=== PATIENT | female | born 1980 | race Caucasian/White ===

== ENCOUNTER 2017-02-23 11:04 | Emergency (ER) | payer SELFPAY ==
[2017-02-23 12:07] LABS: BASO % 0.7 % (0.0-2.0); EOS # 0.1 K/uL (0.0-0.7); EOS % 1.5 % (0.0-4.0); HEMATOCRIT 36.9 % (34.0-47.0); LYMPH # 1.2 K/uL (1.0-4.3); LYMPH % 25.2 % (20.0-40.0); MEAN CORPUSCULAR HEMOGLOBIN 23.8 pg (27.0-31.0); MEAN CORPUSCULAR HGB CONC 31.1 g/dL (33.0-37.0); MEAN PLATELET VOLUME 10.6 fL (7.2-11.7); MONO # 0.5 K/uL (0.0-0.8)
[2017-02-23 12:09] LABS: MEAN CELL VOLUME 76.6 fL (81.0-99.0)
[2017-02-23 12:28] LABS: RBC URINE < 1 /hpf (0-3); URINE BACTERIA RARE (<OCC); URINE BILIRUBIN NEGATIVE (NEGATIVE); URINE BLOOD NEGATIVE (NEGATIVE); URINE COLOR Colorless (YELLOW); URINE GLUCOSE (UA) NORMAL (Normal); URINE KETONE NEGATIVE (NEGATIVE); URINE LEUKOCYTE ESTERASE NEG Leu/uL (Negative); URINE PROTEIN NEGATIVE (NEGATIVE); URINE UROBILINOGEN NORMAL mg/dL (0.2-1.0); WBC URINE < 1 /hpf (0-5)
[2017-02-23 12:28] LABS: CHLORIDE 101 mmol/L (98-107); POTASSIUM 4.1 mmol/L (3.6-5.2); SODIUM 137 mmol/L (132-148)
[2017-02-23 12:30] LABS: GFR AFRICAN-AMERICAN > 60
[2017-02-23 12:31] LABS: ALB/GLOB RATIO 1.7 (1.0-2.1); ALKALINE PHOSPHATASE 57 U/L (38-126); ALT/SGPT 29 U/L (9-52); AST/SGOT 22 U/L (14-36); BILIRUBIN,TOTAL 0.4 mg/dL (0.2-1.3); BLOOD UREA NITROGEN 13 mg/dL (7-17); CARBON DIOXIDE 26 mmol/L (22-30); GLUCOSE,RANDOM 82 mg/dL (65-105); TOTAL PROTEIN 7.6 g/dL (6.3-8.3)
[2017-02-23 12:32] LABS: CALCIUM 8.5 mg/dl (8.6-10.4)
--- NOTE | 2017-02-23 13:15 | C.PDOC ---
History Of Present Illness 36 y/o female presents to ED with complaint of dyspareunia and vaginal bleeding after intercourse x 3 episodes. Notes bleeding resolved the same day. Patient reports history of ectopic on 11/15/16, which required surgery. Denies vaginal discharge, fever, chills, nausea, vomiting, diarrhea, urinary symptoms. Time Seen by Provider: 02/23/17 11:18 Chief Complaint (Nursing): Abdominal Pain History Per: Patient History/Exam Limitations: no limitations Onset/Duration Of Symptoms: Intermittent Episodes Current Symptoms Are (Timing): Still Present Location Of Pain/Discomfort: Suprapubic Radiation Of Pain To:: None Quality Of Discomfort: "Pain" Associated Symptoms: denies: Fever, Chills, Nausea, Vomiting, Diarrhea, Urinary Symptoms Recent travel outside of the [place]: No Abnormal Vaginal Bleeding: Yes Past Medical History Reviewed: Historical Data, Nursing Documentation, Vital Signs Vital Signs: Last Vital Signs Temp 98.4 F 02/23/17 13:55 Pulse 80 02/23/17 14:23 Resp 18 02/23/17 14:23 BP 104/69 02/23/17 14:23 Pulse Ox 100 02/23/17 14:23 - Medical History PMH: No Chronic Diseases Denies: Chronic Kidney Disease - [facility] Procedures EXCISION OF RIGHT FALLOPIAN TUBE, PERC ENDO APPROACH (11/15/16) RESECTION OF ECTOPIC POC, PERC ENDO APPROACH (11/15/16) Family History: States: Unknown Family Hx - Social History Hx Tobacco Use: No Hx Alcohol Use: Yes Hx Substance Use: No - Immunization History Hx Tetanus Toxoid Vaccination: No Hx Influenza Vaccination: No Hx Pneumococcal Vaccination: No Review Of Systems Except As Marked, All Systems Reviewed And Found Negative. Constitutional: Negative for: Fever, Chills Cardiovascular: Negative for: Chest Pain Respiratory: Negative for: Cough, Shortness of Breath Gastrointestinal: Positive for: Abdominal Pain. Negative for: Nausea, Vomiting , Diarrhea Genitourinary: Positive for: Vaginal Bleeding, Pelvic Pain. Negative for: Dysuria, Vaginal Discharge Skin: Negative for: Rash Physical Exam - Physical Exam Appears: Non-toxic, No Acute Distress Skin: Warm, Dry Head: Atraumatic, Normacephalic Eye(s): bilateral: Normal Inspection, EOMI Nose: Normal Oral Mucosa: Moist Chest: Symmetrical Cardiovascular: Rhythm Regular Respiratory: Normal Breath Sounds, No Rales, No Rhonchi, No Wheezing Gastrointestinal/Abdominal: Soft, Tenderness (suprapubic), No Distention, No Guarding, No Rebound, Other (healed incision site) Back: Normal Inspection, No CVA Tenderness Pelvic: Normal External Exam, No Vaginal Bleeding, No Vaginal Discharge, No Cervical Motion Tenderness, No Cervix Open, No Adnexal Tenderness Extremity: Normal ROM, Capillary Refill (< 2 sec.) Extremity: Bilateral: Normal Color And Temperature Neurological/Psych: Oriented x3, Normal Speech, Normal Cognition ED Course And Treatment - Laboratory Results Result Diagrams: 02/23/17 12:00 02/23/17 12:04 O2 Sat by Pulse Oximetry: 98 (RA) Pulse Ox Interpretation: Normal - CT Scan/US PELVIS/TV ULTRASOUND Other Rad Studies (CT/US): Read By Radiologist, Radiology Report Reviewed CT/US Interpretation: Accession No. : [id number]. Patient Name / ID : MARY ALEXIS / [id number]. Exam Date : 02/23/2017 12:56:30 ( Approved ). Study Comment : Sex / Age : F / 36Y. Creator : Binu Terrell MD. Dictator : Binu Terrell MD. Hand Molder : Buggy Runner : Binu Terrell MD. Approver2 : Report Date : 02/23/2017 13:30:15. My Comment : . Pelvic ultrasound. History: Pelvic pain. History of ectopic . Comparison: None available. Technique: Real-time sonography was performed through the pelvis utilizing transabdominal and transvaginal techniques. Findings: Negative urine test. Uterus: 7.4 x 3.6 x 4.2 centimeters. Heterogeneous echotexture. Anteverted. Small superior midline fibroid lesion measuring 1.4 x 1.2 x 1.3 centimeters. Endometrium measures 9.7 millimeters, within normal limits. Right ovary: Prominent. 4.0 x 3.7 x 4.0 centimeters. Heterogeneous echotexture. Normal flow. Complex cystic lesion in the right ovary measuring 3.2 x 3.1 x 3.2 centimeters. Left ovary: 3.0 x 1.9 x 3.1 centimeters. Normal flow. Small amount of free fluid adjacent to the right ovary. Impression: Negative urine test. Complex cystic lesion in the right ovary measuring 3.2 x 3.0 x 3.1 centimeters. Interval followup ultrasound and or correlation with pelvic MRI may be helpful if clinically indicated. Small amount of free fluid adjacent to the right ovary. 1.4 centimeter fibroid lesion in the uterus. Progress Note: Labs, ultrasound ordered and reviewed. No signs of infectionous process. Discussed case with Dr. Sommer who instructed no further treatment and will have pt follow up outpatient. Case discussed with Dr Paredes, agreed upon plan and treatment. Discussed signs of concern, and instructed strict follow up. Disposition - Disposition Referrals: Js Sommer [Staff Provider] - Disposition: HOME/ ROUTINE Disposition Time: 13:41 Condition: STABLE Additional Instructions: Follow up with your primary medical doctor or clinic in 2-5 days for further evaluation. Return to the emergency department at any time if symptoms persist or worsen. Instructions: Ovarian Cyst (ED) - Clinical Impression Clinical Impression: Hx of unilateral salpingectomy, Pelvic pain - PA / [employer] ADMINISTRATOR / Resident Statement MD/DO has reviewed & agrees with the documentation as recorded. - Scribe Statement The provider has reviewed the documentation as recorded by the Araibtaina Zayas All medical record entries made by the Araibtaina were at my direction and personally dictated by me. I have reviewed the chart and agree that the record accurately reflects my personal performance of the history, physical exam, medical decision making, and the department course for this patient. I have also personally directed, reviewed, and agree with the discharge instructions and disposition.
--- NOTE | 2017-02-23 13:32 | US ---
Pelvic ultrasound History: Pelvic pain. History of ectopic . Comparison: None available. Technique: Real-time sonography was performed through the pelvis utilizing transabdominal and transvaginal techniques. Findings: Negative urine test. Uterus: 7.4 x 3.6 x 4.2 centimeters. Heterogeneous echotexture. Anteverted. Small superior midline fibroid lesion measuring 1.4 x 1.2 x 1.3 centimeters. Endometrium measures 9.7 millimeters, within normal limits. Right ovary: Prominent. 4.0 x 3.7 x 4.0 centimeters. Heterogeneous echotexture. Normal flow. Complex cystic lesion in the right ovary measuring 3.2 x 3.1 x 3.2 centimeters. Left ovary: 3.0 x 1.9 x 3.1 centimeters. Normal flow. Small amount of free fluid adjacent to the right ovary. Impression: Negative urine test. Complex cystic lesion in the right ovary measuring 3.2 x 3.0 x 3.1 centimeters. Interval followup ultrasound and or correlation with pelvic MRI may be helpful if clinically indicated. Small amount of free fluid adjacent to the right ovary. 1.4 centimeter fibroid lesion in the uterus.
[2017-02-23 14:03] VITALS: TEMP 98.4
[2017-02-23 14:25] VITALS: BP 104/69; PULSE 80; RESP 18
[2017-02-26 20:17] VITALS: O2SAT 98
== END 2017-02-23 14:25 | disposition home or self-care (01) ==
LOC: C.ER 11:04
DX: R10.2 Pelvic and perineal pain (principal); Z98.890 Other specified postprocedural states

== ENCOUNTER 2017-08-11 12:58 | Emergency (ER) | payer SELFPAY ==
[2017-08-11 13:33] VITALS: RESP 16
[2017-08-11 15:20] LABS: BASO % 0.4 % (0.0-2.0); EOS % 0.3 % (0.0-4.0); LYMPH # 1.2 K/uL (1.0-4.3); LYMPH % 16.4 % (20.0-40.0); MEAN CELL VOLUME 78.1 fL (81.0-99.0); MEAN CORPUSCULAR HEMOGLOBIN 25.1 pg (27.0-31.0); MEAN CORPUSCULAR HGB CONC 32.1 g/dL (33.0-37.0); MEAN PLATELET VOLUME 10.3 fL (7.2-11.7); MONO # 0.6 K/uL (0.0-0.8); MONO % 8.8 % (0.0-10.0); RED CELL DISTRIBUTION WIDTH 14.7 % (11.5-14.5)
[2017-08-11 15:31] LABS: RBC URINE < 1 /hpf (0-3); URINE BACTERIA MOD (<OCC); URINE BILIRUBIN NEGATIVE (NEGATIVE); URINE BLOOD NEGATIVE (NEGATIVE); URINE COLOR Straw (YELLOW); URINE GLUCOSE (UA) NORMAL (Normal); URINE KETONE NEGATIVE (NEGATIVE); URINE LEUKOCYTE ESTERASE NEG Leu/uL (Negative); URINE PROTEIN NEGATIVE (NEGATIVE); URINE UROBILINOGEN NORMAL mg/dL (0.2-1.0); WBC URINE < 1 /hpf (0-5)
[2017-08-11 15:32] LABS: ALB/GLOB RATIO 1.4 (1.0-2.1); ALKALINE PHOSPHATASE 59 U/L (38-126); ALT/SGPT 38 U/L (9-52); AST/SGOT 26 U/L (14-36); BILIRUBIN,TOTAL 0.8 mg/dL (0.2-1.3); BLOOD UREA NITROGEN 7 mg/dL (7-17); CALCIUM 8.6 mg/dl (8.6-10.4); CARBON DIOXIDE 24 mmol/L (22-30); CHLORIDE 101 mmol/L (98-107); GFR AFRICAN-AMERICAN > 60; GLUCOSE,RANDOM 112 mg/dL (65-105); POTASSIUM 3.1 mmol/L (3.6-5.2); SODIUM 137 mmol/L (132-148); TOTAL PROTEIN 7.6 g/dL (6.3-8.3)
--- NOTE | 2017-08-11 16:27 | C.PDOC ---
History Of Present Illness 37 y/o female with history of right ruptured ectopic several months ago with right salpingectomy presents to ED with complaints of headache and right sided low abdominal pain since last night. Patient states she has a + home test and reports no care. Patient also complaints of "urine feels hot" and denies nausea, vomiting, vaginal bleeding, back pain or any other complaints at this time. LMP 06/26/17 Time Seen by Provider: 08/11/17 15:04 Chief Complaint (Nursing): Abdominal Pain History Per: Patient History/Exam Limitations: no limitations Onset/Duration Of Symptoms: Days Current Symptoms Are (Timing): Still Present Location Of Pain/Discomfort: LLQ Past Medical History Reviewed: Historical Data, Nursing Documentation, Vital Signs Vital Signs: Last Vital Signs Temp 98.1 F 08/11/17 13:31 Pulse 89 08/11/17 13:31 Resp 16 08/11/17 13:31 BP 113/74 08/11/17 13:31 Pulse Ox 100 08/11/17 18:30 - Medical History PMH: No Chronic Diseases Surgical History: No Surg Hx - [facility] Procedures EXCISION OF RIGHT FALLOPIAN TUBE, PERC ENDO APPROACH (11/15/16) RESECTION OF ECTOPIC POC, PERC ENDO APPROACH (11/15/16) Family History: States: No Known Family Hx - Social History Hx Tobacco Use: No Hx Alcohol Use: No Hx Substance Use: No - Immunization History Hx Tetanus Toxoid Vaccination: No Hx Influenza Vaccination: No Hx Pneumococcal Vaccination: No Review Of Systems Constitutional: Negative for: Fever, Chills Gastrointestinal: Positive for: Abdominal Pain. Negative for: Nausea, Vomiting , Diarrhea Genitourinary: Negative for: Dysuria, Hematuria Musculoskeletal: Negative for: Back Pain Skin: Negative for: Rash Neurological: Positive for: Headache. Negative for: Weakness, Numbness Physical Exam - Physical Exam Additional Physical Exam Comments: Constitutional: No acute distress. WDWN. Head: Normocephalic. Atraumatic. Eyes: PERRL. EOMI. ENT: Moist mucous membranes. Neck: Supple. Cardiovascular: Regular rate and rhythm. Chest: No tenderness. Respiratory: Clear to auscultation bilaterally. GI: Soft. Nontender. Nondistended. Normoactive bowel sounds. No rebound. No guarding. Back: No CVA and no mid-line tenderness. Musculoskeletal: No tenderness or swelling of extremities. Skin: No rash. Neurologic: Alert, no focal deficit. ED Course And Treatment - Laboratory Results Result Diagrams: 08/11/17 15:11 08/11/17 15:11 O2 Sat by Pulse Oximetry: 100 (RA) Pulse Ox Interpretation: Normal - CT Scan/US Preg 1st Trimester Other Rad Studies (CT/US): Read By Radiologist, Radiology Report Reviewed CT/US Interpretation: Indication: left pelvic pain, , hx right ruptured ectopic. Comparison: None available. Technique: Real-time transabdominal pelvic ultrasound was performed. In addition a transvaginal pelvic ultrasound was necessary to better depict pelvic anatomy. Findings: The uterus measures approximately 8.3 x 4.7 x 5.6 cm. Retroverted. Probable posterior uterine fibroid measuring approximately 1.8 x 2.1 x 2.0 cm. Cervix length measures approximately 2.6 cm. There is a single intrauterine fetus present. 4 mm yolk sac. The gestational sac measures 1.4 cm and is compatible with a gestational age of 5 weeks 4 days. The crown-rump length measures 0.3 cm and is compatible with a gestational age of 6 weeks 0 days. heart motion was not detected during this examination. The right ovary measures 3.2 x 2.6 x 2.8 cm and contains 2.0 x 1.5 x 2.0 cm probable corpus luteal cyst. The left ovary measures 2.9 x 2.6 x 2.3 cm. Blood flow was demonstrated to both ovaries. Small pelvic free fluid. Impression: Single intrauterine with estimated gestational age 5 weeks 4 days by gestational sac calculation and 6 weeks 0 days by crown-rump length calculation. heart motion was not detected during this examination, which may be the result of early stage of . Recommend clinical correlation including quantitative beta HCG and follow-up as indicated. Probable 2 cm right ovarian corpus luteal cyst. Small pelvic free fluid. 2.1 cm posterior uterine fibroid. Medical Decision Making Medical Decision Making: Plan: Transvaginal US, UA, IV fluids 7 pm pt in early stages of , gestational sac seen, no hb, beta [id number]. will d/c patient with precautions, af/u 2 days for repeat bhcg and sono, eat foods with potassium. Disposition Counseled Patient/Family Regarding: Diagnosis, Need For Followup - Disposition Referrals: [facility] [Outside] Disposition: HOME/ ROUTINE Disposition Time: 19:11 Condition: STABLE Additional Instructions: Pelvic rest, nothing in vagina. FOllow up in [facility] clinic or in ED in 2 days for repeat bhcg blood work and repeat sonogram. Return to ER for any worsening pain, vaginal bleeding or other concerns. Eat foods high in potassium. Forms: [facility] (Armenian), General Discharge Instructions - Clinical Impression Clinical Impression: Threatened , Hypokalemia - PA / ALBERENE STONE SETTER / Resident Statement MD/DO has reviewed & agrees with the documentation as recorded. - Scribe Statement The provider has reviewed the documentation as recorded by the Scribtaina Whaley All medical record entries made by the Nesha were at my direction and personally dictated by me. I have reviewed the chart and agree that the record accurately reflects my personal performance of the history, physical exam, medical decision making, and the department course for this patient. I have also personally directed, reviewed, and agree with the discharge instructions and disposition.
--- NOTE | 2017-08-11 18:00 | US ---
Indication: left pelvic pain, , hx right ruptured ectopic Comparison: None available Technique: Real-time transabdominal pelvic ultrasound was performed. In addition a transvaginal pelvic ultrasound was necessary to better depict pelvic anatomy. Findings: The uterus measures approximately 8.3 x 4.7 x 5.6 cm. Retroverted. Probable posterior uterine fibroid measuring approximately 1.8 x 2.1 x 2.0 cm. Cervix length measures approximately 2.6 cm. There is a single intrauterine fetus present. 4 mm yolk sac. The gestational sac measures 1.4 cm and is compatible with a gestational age of 5 weeks 4 days. The crown-rump length measures 0.3 cm and is compatible with a gestational age of 6 weeks 0 days. heart motion was not detected during this examination. The right ovary measures 3.2 x 2.6 x 2.8 cm and contains 2.0 x 1.5 x 2.0 cm probable corpus luteal cyst. The left ovary measures 2.9 x 2.6 x 2.3 cm. Blood flow was demonstrated to both ovaries. Small pelvic free fluid. Impression: Single intrauterine with estimated gestational age 5 weeks 4 days by gestational sac calculation and 6 weeks 0 days by crown-rump length calculation. heart motion was not detected during this examination, which may be the result of early stage of . Recommend clinical correlation including quantitative beta HCG and follow-up as indicated. Probable 2 cm right ovarian corpus luteal cyst. Small pelvic free fluid. 2.1 cm posterior uterine fibroid.
[2017-08-11] MEDS ORDERED: Potassium Chloride 20 mEq/15 ml LIQ UD PO STA (18:33)
[2017-08-11] MEDS ORDERED: Potassium Chloride 20 mEq ER Tab PO STA ×2 (18:48→18:49)
[2017-08-11] MEDS ORDERED: Potassium Chloride 20 mEq ER Tab PO ONE (18:48)
[2017-08-11 19:28] VITALS: BP 121/71; PULSE 81; TEMP 97.3; O2SAT 97
[2017-08-12] MEDS ORDERED: Potassium Chloride 20 mEq ER Tab PO SCH (10:00)
== END 2017-08-11 19:27 | disposition home or self-care (01) ==
LOC: C.ER 12:58
DX: O20.0 Threatened abortion (principal); O26.891 Other specified pregnancy related conditions, first trimester; E87.6 Hypokalemia; Z3A.01 Less than 8 weeks gestation of pregnancy

== ENCOUNTER 2017-08-18 20:10 | Emergency (ER) | payer SELFPAY ==
[2017-08-18 20:10] VITALS: BMI 23.3
[2017-08-18] MEDS ORDERED: Sodium Chloride 0.9% 1,000 ML IV ONE ×2 (21:10→23:17)
[2017-08-18] MEDS ORDERED: Sodium Chloride 0.9% 1,000 ML ONE ×2 (21:20→23:29)
[2017-08-18 21:22] LABS: BASO % 0.3 % (0.0-2.0); EOS % 0.2 % (0.0-4.0); HEMATOCRIT 42.1 % (34.0-47.0); LYMPH # 1.1 K/uL (1.0-4.3); MEAN CORPUSCULAR HEMOGLOBIN 25.2 pg (27.0-31.0); MEAN CORPUSCULAR HGB CONC 32.3 g/dL (33.0-37.0); MEAN PLATELET VOLUME 10.7 fL (7.2-11.7); MONO # 0.5 K/uL (0.0-0.8); MONO % 5.9 % (0.0-10.0); RED CELL DISTRIBUTION WIDTH 14.8 % (11.5-14.5); WHITE BLOOD COUNT 8.8 K/uL (4.8-10.8)
[2017-08-18 21:34] LABS: RBC URINE 7 /hpf (0-3); URINE BACTERIA MANY (<OCC); URINE BILIRUBIN NEGATIVE (NEGATIVE); URINE BLOOD NEGATIVE (NEGATIVE); URINE COLOR Yellow (YELLOW); URINE GLUCOSE (UA) NORMAL (Normal); URINE KETONE 2+ mg/dL (NEGATIVE); URINE LEUKOCYTE ESTERASE NEG Leu/uL (Negative); URINE PROTEIN 1+ mg/dL (NEGATIVE); URINE UROBILINOGEN NORMAL mg/dL (0.2-1.0); WBC URINE 4 /hpf (0-5)
[2017-08-18 21:38] LABS: ALB/GLOB RATIO 1.4 (1.0-2.1); ALKALINE PHOSPHATASE 73 U/L (38-126); ALT/SGPT 35 U/L (9-52); AST/SGOT 25 U/L (14-36); BILIRUBIN,TOTAL 1.3 mg/dL (0.2-1.3); BLOOD UREA NITROGEN 11 mg/dL (7-17); CALCIUM 9.5 mg/dl (8.6-10.4); CARBON DIOXIDE 20 mmol/L (22-30); CHLORIDE 102 mmol/L (98-107); GFR AFRICAN-AMERICAN > 60; GLUCOSE,RANDOM 103 mg/dL (65-105); POTASSIUM 3.3 mmol/L (3.6-5.2); SODIUM 139 mmol/L (132-148); TOTAL PROTEIN 8.4 g/dL (6.3-8.3)
--- NOTE | 2017-08-18 21:48 | C.PDOC ---
History Of Present Illness Dalia Bansal is a 37 year old female, with no past medical history, who presents to the emergency department complaining of abdominal pain associated with x7 episodes of vomiting onset for x2 days. Patient is 6 weeks , A1, she had an ectopic . She states she can't eat or drink without vomiting the contents. She was seen in the ED last week for fever, and had an US done. She denies any vaginal bleeding, diarrhea or nausea. No further medical complaints. PMD: Clinic,Med Surg Time Seen by Provider: 08/18/17 20:56 Chief Complaint (Nursing): Abdominal Pain History Per: Patient History/Exam Limitations: no limitations Onset/Duration Of Symptoms: Days (x2) Current Symptoms Are (Timing): Still Present Location Of Pain/Discomfort: Diffuse Radiation Of Pain To:: None Quality Of Discomfort: "Pain" Associated Symptoms: Vomiting (x7 episodes). denies: Nausea, Diarrhea, Other ( vaginal bleeding) : 2 Para: 0 Miscarriage: 1 Past Medical History Reviewed: Historical Data, Nursing Documentation, Vital Signs Vital Signs: Last Vital Signs Temp 98.2 F 08/19/17 04:33 Pulse 88 08/19/17 04:33 Resp 24 08/19/17 04:33 BP 95/38 L 08/19/17 04:33 Pulse Ox 100 08/19/17 04:33 - Medical History PMH: Denies: Chronic Kidney Disease - [facility] Procedures EXCISION OF RIGHT FALLOPIAN TUBE, PERC ENDO APPROACH (11/15/16) RESECTION OF ECTOPIC POC, PERC ENDO APPROACH (11/15/16) Family History: States: Unknown Family Hx - Social History Hx Tobacco Use: No Hx Alcohol Use: No Hx Substance Use: No - Immunization History Hx Tetanus Toxoid Vaccination: No Hx Influenza Vaccination: No Hx Pneumococcal Vaccination: No Review Of Systems Except As Marked, All Systems Reviewed And Found Negative. Gastrointestinal: Positive for: Vomiting (x7 episodes), Abdominal Pain. Negative for: Nausea, Diarrhea Genitourinary: Negative for: Vaginal Bleeding Physical Exam - Physical Exam Skin: Normal Color, Warm, Dry Head: Atraumatic, Normacephalic Eye(s): bilateral: Normal Inspection, PERRL, EOMI Neck: Normal, Normal ROM, Supple Cardiovascular: Rhythm Regular Respiratory: Normal Breath Sounds, No Accessory Muscle Use Gastrointestinal/Abdominal: Tenderness (diffused) Extremity: Normal ROM, No Deformity, No Swelling Neurological/Psych: Oriented x3, Normal Speech ED Course And Treatment - Laboratory Results Result Diagrams: 08/18/17 21:17 08/18/17 21:17 O2 Sat by Pulse Oximetry: 100 (RA) Pulse Ox Interpretation: Normal - CT Scan/US Transvaginal US Other Rad Studies (CT/US): Read By Radiologist, Radiology Report Reviewed CT/US Interpretation: IMPRESSION: 6 week 4 day single living intrauterine gestation, estimated date of delivery 04/09/18;. right corpus luteum Medical Decision Making Medical Decision Making: Initial Impression: abdominal pain in Initial Plan: --Beta-HCG, quantitative --Comp Metabolic Panel --Pepcid 20 mg IVP --Zofran Inj 4 mg IVP --NS IV 1,000 ml @ 1,000 mls/hr --Transvaginal [US] --reevaluation patient remained symptomatic. Phoned ob flight reservations manager and states doctor is in . Case s/o at 1 am Disposition - Disposition Referrals: [facility] [Outside] [facility] [Outside] Disposition: HOME/ ROUTINE Disposition Time: 01:00 Condition: GOOD Additional Instructions: Thank you for letting us take care of you today. The emergency medical care you received today was directed at your acute symptoms. If you were prescribed any medication, please fill it and take as directed. It may take several days for your symptoms to resolve. Return to the Emergency Department if your symptoms worsen, do not improve, or if you have any other problems. Please contact your doctor or call one of the physicians/clinics you have been referred to that are listed on the Patient Visit Information form that is included in your discharge packet. Bring any paperwork you were given at discharge with you along with any medications you are taking to your follow up visit. Our treatment cannot replace ongoing medical care by a primary care provider (PCP) outside of the emergency department. Thank you for allowing the [facility] team to be part of your care today. Follow up with your [facility] doctor or the clinic this week for outpatient care and management. Prescriptions: Metoclopramide [Reglan] 10 mg PO Q8 PRN #20 tab PRN Reason: Nausea/Vomiting Instructions: Hyperemesis Gravidarum (ED) Forms: [facility] (Togolese), General Discharge Instructions - Clinical Impression Clinical Impression: Hyperemesis gravidarum - Scribe Statement Freddy Siu Provider Attestation: All medical record entries made by the Scribe were at my direction and personally dictated by me. I have reviewed the chart and agree that the record accurately reflects my personal performance of the history, physical exam, medical decision making, and the department course for this patient. I have also personally directed, reviewed, and agree with the discharge instructions and disposition. Physician Patient Turnover Patient Signed Over To: Cheo García DO Handoff Comments: pending call back from OB for possible admission
[2017-08-18] MEDS ORDERED: Potassium Chloride 20 mEq ER Tab PO STA (23:24)
[2017-08-18] MEDS ORDERED: Potassium Chloride 20 mEq ER Tab PO ONE ×2 (23:28→23:33)
--- NOTE | 2017-08-19 00:29 | US ---
EXAM: US , Transvaginal EXAM DATE/TIME: 08/18/2017 9:16 PM CLINICAL HISTORY: 37 years old, female; Pain; complicated by abdominal or pelvic pain; Generalized abdominal pain; First trimester; Gestational age or lmp: [id number]; ; Prior surgery; Surgery type: H/o ectopic; Additional info: Abd. Pain ADDITIONAL HISTORY: 5 week 4 day single intrauterine gestation seen on sonography 08/11/17 TECHNIQUE: Real-time transvaginal obstetrical ultrasound of the maternal pelvis and a first trimester with image documentation. Transvaginal imaging was used for better evaluation of the fetus and adnexa. COMPARISON: Prior images are not available for review. FINDINGS: Gestation: There is a single gestational sac in the uterus. Gestational sac has mean diameter 20.6 mm. A yolk sac is present, internal diameter measures 3 mm. Herlong rump length measures 6.5 mm.There is a heart rate of 150 beats per minute.. Uterus: Uterus measures approximately 8 x 5 x 6 cm. There is a 1.9 x 1.5 x 2.3 cm subserosal fibroid. Ovaries: Right ovary measures approximately 3.2 x 2.4 x 2.6 cm. There is a corpus luteum in the right ovary. Left ovary measures approximately 2.9 x 1.5 x 2.7 cm. There are follicles in both ovaries. There is flow in both ovaries on Doppler imaging. Free fluid: There is no free fluid. IMPRESSION: 6 week 4 day single living intrauterine gestation, estimated date of delivery 04/09/18; right corpus luteum
[2017-08-19] MEDS ORDERED: Dextrose 5%/Lactated Ringer's 1,000 ML IV SCH ×2 (02:45→03:00)
[2017-08-19 04:33] VITALS: BP 95/38; PULSE 88; RESP 24; O2SAT 100
[2017-08-19 04:37] VITALS: TEMP 98.2
== END 2017-08-19 04:43 | disposition home or self-care (01) ==
LOC: C.ER 20:10
DX: O21.1 Hyperemesis gravidarum with metabolic disturbance (principal); Z3A.01 Less than 8 weeks gestation of pregnancy
CPT/HCPCS: 76805; 76817; 80053; 81001; 83690; 84702; 85025; 96361; 96374; 96375; 96376; 99285; J2405; J2765; J7040; J7120

== ENCOUNTER 2017-08-23 15:47 | Observation (INO) | payer OTHER ==
[2017-08-23 15:48] VITALS: BMI 23.3
[2017-08-23] MEDS ORDERED: Sodium Chloride 0.9% 1,000 ML IV ONE ×2 (16:07→17:58)
--- NOTE | 2017-08-23 16:20 | C.PDOC ---
History Of Present Illness 37 year old female presents to the emergency department complaining of persistent vomiting for several days. Patient is 7 weeks , A1, history of ectopic . She states anything she eats or drinks she will vomit. She was seen in the ED last week and states the medication prescribed to her is not helping. She denies any vaginal bleeding, diarrhea or severe abdominal pain. She states she has mild pain only after vomiting. PMD: Clinic,Med Surg Time Seen by Provider: 08/23/17 16:06 Chief Complaint (Nursing): GI Problem History Per: Patient History/Exam Limitations: no limitations Onset/Duration Of Symptoms: Days Current Symptoms Are (Timing): Still Present Severity: Mild Associated Symptoms: Vomiting Abnormal Vaginal Bleeding: No Past Medical History Reviewed: Historical Data, Nursing Documentation, Vital Signs Vital Signs: Last Vital Signs Temp 97.9 F 08/23/17 17:54 Pulse 101 H 08/23/17 17:54 Resp 20 08/23/17 17:54 BP 108/68 08/23/17 17:54 Pulse Ox 100 08/23/17 18:49 - Medical History PMH: No Chronic Diseases - [facility] Procedures EXCISION OF RIGHT FALLOPIAN TUBE, PERC ENDO APPROACH (11/15/16) RESECTION OF ECTOPIC POC, PERC ENDO APPROACH (11/15/16) Family History: States: Unknown Family Hx - Social History Hx Tobacco Use: No Hx Alcohol Use: No Hx Substance Use: No - Immunization History Hx Tetanus Toxoid Vaccination: No Hx Influenza Vaccination: No Hx Pneumococcal Vaccination: No Review Of Systems Except As Marked, All Systems Reviewed And Found Negative. Gastrointestinal: Positive for: Nausea, Vomiting Physical Exam - Physical Exam Appears: Non-toxic, No Acute Distress Skin: Warm, Dry Head: Atraumatic, Normacephalic Eye(s): bilateral: Normal Inspection, EOMI Oral Mucosa: Moist Lips: Other (dry) Neck: Normal ROM Chest: Symmetrical Cardiovascular: Rhythm Regular, No Murmur Respiratory: Normal Breath Sounds (clear), No Rhonchi, No Wheezing Gastrointestinal/Abdominal: Bowel Sounds, Soft, No Tenderness, No Distention, No Guarding Extremity: Bilateral: Atraumatic, Normal Color And Temperature, Normal ROM Pulses: Left Radial: Normal Neurological/Psych: Oriented x3, Normal Speech ED Course And Treatment - Laboratory Results Result Diagrams: 08/23/17 16:20 08/23/17 16:20 O2 Sat by Pulse Oximetry: 100 Medical Decision Making Medical Decision Making: Impression: Vomiting in patient Plan: * Labs * IV NS * Zofran Prior records reviewed : Patient seen 08/18/17 for abdominal pain and vomiting. BHCG was 93157 and US shows IUP 6 weeks 4 days. Patient also seen 08/11/17 had BHCG 32531 and US shows IUP 5 days Progress: 1730 Labs reviewed. BHCG is 772209. Re-Evaluation time: 1731 Patient states she feels "heartburn" and is willing to try to drink fluids. PO challenge ordered. Pepcid ordered. 17:45 RN informs me the patient vomited again. Will order Reglan and additional fluids 17:56 Contact OB consumer affairs director Dr Dasilva to discuss case. Wants to await urine results. Patient encouraged to give urine. 18:38 Urine results show +2 ketones and protein. Contact OB consumer affairs director 18:[address] Dasilva who accepts patient to service Disposition - Disposition Disposition: HOME/ ROUTINE Disposition Time: 18:49 Condition: STABLE - POA Present On Arrival: None - Clinical Impression Clinical Impression: Hyperemesis gravidarum, Dehydration during Decision To Admit - Pt Status Changed To: Hospital Disposition Of: Observation - . Bed Request Type: Regular Admitting Physician: Faiza Dasilva Patient Diagnosis: Hyperemesis gravidarum, Dehydration during
[2017-08-23] MEDS ORDERED: Sodium Chloride 0.9% 1,000 ML ONE (16:21)
[2017-08-23 16:22] LABS: HEMATOCRIT 40.4 % (34.0-47.0); MEAN CORPUSCULAR HEMOGLOBIN 25.5 pg (27.0-31.0); MEAN CORPUSCULAR HGB CONC 33.1 g/dL (33.0-37.0); MEAN PLATELET VOLUME 10.8 fL (7.2-11.7); RED CELL DISTRIBUTION WIDTH 14.2 % (11.5-14.5); WHITE BLOOD COUNT 8.6 K/uL (4.8-10.8)
[2017-08-23 16:35] LABS: BLOOD UREA NITROGEN 9 mg/dL (7-17); CALCIUM 9.2 mg/dl (8.6-10.4); CARBON DIOXIDE 20 mmol/L (22-30); CHLORIDE 101 mmol/L (98-107); GFR AFRICAN-AMERICAN > 60; GLUCOSE,RANDOM 77 mg/dL (65-105); POTASSIUM 3.4 mmol/L (3.6-5.2); SODIUM 136 mmol/L (132-148)
[2017-08-23 18:36] LABS: RBC URINE 17 /hpf (0-3); URINE BACTERIA MANY (<OCC); URINE BILIRUBIN NEGATIVE (NEGATIVE); URINE BLOOD NEGATIVE (NEGATIVE); URINE COLOR Yellow (YELLOW); URINE GLUCOSE (UA) NORMAL (Normal); URINE KETONE 2+ mg/dL (NEGATIVE); URINE LEUKOCYTE ESTERASE NEG Leu/uL (Negative); URINE PROTEIN 1+ mg/dL (NEGATIVE); URINE UROBILINOGEN NORMAL mg/dL (0.2-1.0); WBC URINE 45 /hpf (0-5)
[2017-08-23] MEDS ORDERED: Potassium Chloride 20 mEq ER Tab PO STA (18:54)
[2017-08-23] MEDS ORDERED: Potassium Chloride 20 mEq ER Tab PO ONE (19:08)
--- NOTE | 2017-08-23 19:52 | CP.PCM.HP ---
History of Present Illness - History of Present Illness History of Present Illness: 37 y/o @ ~ 7+ wks by 1st trimester US ~ 04/09/18 not confirmed reports hx of nausea and vomiting x 1-2 weeks, non bloody non billious. pt reports unable to keep po intake down daily. rosa m gonzalez was seen in [facility] ER Thursday and subsquently d/c home with po reglan in which pt reports no relief. While in ER pt unable to keep po intake down with Zofran or reglan. Pt modesto any appeteit, denies any current dizzyness, Cp, SOB< fever, chills, reprots nausea and immeidate vomtiign after po intake includign bread adn sometimes crackers. Pt reprots this is a desired and deneis any pain, VB, discharge, bowel or bladder complaints. Ante: no care, reports on waitlist for clinic at [place] [facility]: 1 prior Ectopic s/p laparascopy [facility] [employer]: rose , LMP 06/2017, irregular age of menarche 14 y/o PMH: Denies PSH: Laparascopy MED: PNV and folic acid when tolerate SHX: negative eoth/tobacco/drugs FHX: Mother: New dx of DM Allergy Iron Present on Admission - Present on Admission Any Indicators Present on Admission: No Review of Systems - Constitutional Constitutional: As Per HPI - EENT Nose/Mouth/Throat: As Per HPI - Cardiovascular Cardiovascular: As Per HPI - Respiratory Respiratory: As Per HPI - Gastrointestinal Gastrointestinal: As Per HPI, Heartburn, Nausea, Vomiting - Genitourinary Genitourinary: As Per HPI - Reproductive: Female Reproductive:Female: As Per HPI - Menstruation Menstruation: As Per HPI Past Patient History - Infectious Disease Hx of Infectious Diseases: None - Past Medical History & Family History Past Medical History?: No Past Family History: Reviewed and not pertinent - Past Social History Smoking Status: Never Smoked Chewing Tobacco Use: No Cigar Use: No Alcohol: None Home Situation {Lives}: With Family Domestic Violence: Negative - CARDIAC Hx Cardiac Disorders: No - PULMONARY Hx Respiratory Disorders: No - NEUROLOGICAL Hx Neurological Disorder: No - HEMATOLOGICAL/ONCOLOGICAL Hx Blood Disorders: No - GASTROINTESTINAL Hx Gastrointestinal Disorders: No - GENITOURINARY/GYNECOLOGICAL Other/Comment: 11/15/16 ECTOPIC - PSYCHIATRIC Hx Substance Use: No - SURGICAL HISTORY Hx Surgeries: Yes Hx Dilation and Curettage: Yes - ANESTHESIA Hx Anesthesia: Yes Hx Anesthesia Reactions: No Meds Allergies/Adverse Reactions: Allergies Allergy/AdvReac Type Severity Reaction Status Date / Time iron AdvReac VOMITING Verified 08/23/17 15:59 Physical Exam - Constitutional Appears: Well, No Acute Distress - Head Exam Head Exam: ATRAUMATIC, NORMAL INSPECTION - Eye Exam Eye Exam: EOMI, Normal appearance Pupil Exam: NORMAL ACCOMODATION - ENT Exam ENT Exam: Mucous Membranes Dry - Respiratory Exam Respiratory Exam: Clear to Auscultation Bilateral, NORMAL BREATHING PATTERN - Cardiovascular Exam Cardiovascular Exam: REGULAR RHYTHM, +S1, +S2 - GI/Abdominal Exam GI & Abdominal Exam: Normal Bowel Sounds, Soft Additional comments: non tendern, no guarding, no rebound tendernes, no rigidity - Exam Additional comments: declined pelvic exam - Back Exam Back exam: NORMAL INSPECTION Additional comments: no cva b/l - Neurological Exam Neurological exam: CN II-XII Intact, Oriented x3, Reflexes Normal - Psychiatric Exam Psychiatric exam: Normal Affect, Normal Mood - Skin Skin Exam: Dry, Intact, Normal Color, Warm Additional comments: negative dimas's sign Results - Vital Signs Recent Vital Signs: Last Vital Signs Temp 97.9 F 08/23/17 17:54 Pulse 69 08/23/17 19:33 Resp 16 08/23/17 19:33 BP 111/67 08/23/17 19:33 Pulse Ox 100 08/23/17 19:33 - Labs Result Diagrams: 08/23/17 16:20 08/23/17 16:20 Labs: Laboratory Results - last 24 hr 08/23/17 08/23/17 08/23/17 16:20 16:20 18:04 WBC 8.6 RBC 5.24 H Hgb 13.4 Hct 40.4 MCV 77.0 L MCH 25.5 L MCHC 33.1 RDW 14.2 Plt Count 166 MPV 10.8 Sodium 136 Potassium 3.4 L Chloride 101 Carbon Dioxide 20 L Anion Gap 18 BUN 9 Creatinine 0.5 L Est GFR ( Amer) > 60 Est GFR (Non-Af Amer) > 60 Random Glucose 77 Calcium 9.2 Beta HCG, Quant 362611.00 Urine Color Yellow Urine Clarity Clear Urine pH 5.0 Ur Specific [place] 1.027 Urine Protein 1+ H Urine Glucose (UA) Normal Urine Ketones 2+ H Urine Blood Negative Urine Nitrate Negative Urine Bilirubin Negative Urine Urobilinogen Normal Ur Leukocyte Esterase Neg Urine WBC (Auto) 45 H Urine RBC (Auto) 17 H Ur Squamous Epith Cells 9 H Urine Bacteria Many H Urine HCG, Qual Positive Assessment & Plan (1) Nausea and vomiting during prior to 22 weeks gestation Assessment and Plan: 1. Admit to vocational childcare teacher service 2. Diet: NPO, will advance in am with clears 3. IVH: Bananana back [id number], thiamien @ 125 cc/hr 4. AM Labs 5. TVUS dating 6. Daily weights 7. Possible nutrition consult if fails po challenge 8. Zofran IV --> oral dissolabel if tolerable Status: Acute
[2017-08-23] MEDS: Folic Acid 1 MG, Thiamine 100 MG, Multivitamin (MVI) 10 ML in Dextrose 5% In Water 1,00... IV SCH (20:31)
[2017-08-24 00:22] VITALS: RESP 20
[2017-08-24 07:03] LABS: BASO % 0.4 % (0.0-2.0); EOS # 0.1 K/uL (0.0-0.7); EOS % 1.1 % (0.0-4.0); HEMATOCRIT 33.6 % (34.0-47.0); LYMPH # 1.1 K/uL (1.0-4.3); LYMPH % 18.1 % (20.0-40.0); MEAN CELL VOLUME 78.3 fL (81.0-99.0); MEAN CORPUSCULAR HEMOGLOBIN 25.6 pg (27.0-31.0); MEAN CORPUSCULAR HGB CONC 32.7 g/dL (33.0-37.0); MEAN PLATELET VOLUME 11.1 fL (7.2-11.7); MONO # 0.7 K/uL (0.0-0.8); MONO % 12.1 % (0.0-10.0); RED CELL DISTRIBUTION WIDTH 14.5 % (11.5-14.5); WHITE BLOOD COUNT 5.9 K/uL (4.8-10.8)
[2017-08-24 07:06] LABS: RBC URINE 1 /hpf (0-3); URINE BACTERIA MANY (<OCC); URINE BILIRUBIN NEGATIVE (NEGATIVE); URINE BLOOD NEGATIVE (NEGATIVE); URINE COLOR Yellow (YELLOW); URINE GLUCOSE (UA) NORMAL (Normal); URINE KETONE 1+ mg/dL (NEGATIVE); URINE LEUKOCYTE ESTERASE NEG Leu/uL (Negative); URINE PROTEIN NEGATIVE (NEGATIVE); URINE UROBILINOGEN NORMAL mg/dL (0.2-1.0); WBC URINE 2 /hpf (0-5)
[2017-08-24 08:00] LABS: ALB/GLOB RATIO 1.4 (1.0-2.1); ALKALINE PHOSPHATASE 44 U/L (38-126); ALT/SGPT 27 U/L (9-52); AMYLASE 76 U/L (30-110); AST/SGOT 16 U/L (14-36); BILIRUBIN,TOTAL 1.4 mg/dL (0.2-1.3); BLOOD UREA NITROGEN 4 mg/dL (7-17); CALCIUM 7.9 mg/dl (8.6-10.4); CARBON DIOXIDE 20 mmol/L (22-30); CHLORIDE 106 mmol/L (98-107); GFR AFRICAN-AMERICAN > 60; GLUCOSE,RANDOM 68 mg/dL (65-105); MAGNESIUM 1.5 mg/dL (1.6-2.3); SODIUM 134 mmol/L (132-148)
[2017-08-24 08:07] LABS: TOTAL PROTEIN 6.9 g/dL (6.3-8.3)
[2017-08-24] MEDS ORDERED: Magnesium Sulfate 1 gm in D5W 1 GM/100 ML BAG IVPB ONE (08:26)
--- NOTE | 2017-08-24 11:23 | US ---
PROCEDURE: OB Pelvic Ultrasound HISTORY: 7 wk iup COMPARISON: None available. FINDINGS: UTERUS: Single Live intrauterine gestation. CRL measures 0.69 cm equivalent to 6 wks/ for days gestatioin Gestational sac diameter measures 2.63 cm equivalent to 7 wks/ 3 days gestation age (Ultrasound estimated): 7 weeks and 0 days Date of delivery (Ultrasound estimated) : 04/12/2018 Heart rate: 129 bpm. Anaid-gestational hemorrhage: None. Uterus measures 9.7 x 5.4 x 0.3 cm. There is a 2.7 x 1.5 x 2.5 cm intramural anterior fundal fibroid. CERVIX: Long and closed. No cervical abnormality seen. RIGHT OVARY: Measures 3.1 x 2.1 x 2.8 cm. No mass. Normal flow. LEFT OVARY: Measures 3.2 x 2.1 x 3.0 cm. No mass. Normal flow. FREE FLUID: None. OTHER FINDINGS: None. IMPRESSION: 1. Single live intrauterine gestation with mean gestational age of 7 weeks and 0 days. The estimated date of delivery by ultrasound is 04/12/2018. The ultrasound dates correspond with the clinical dates 2. 2.7 x 1.5 x 2.5 cm anterior fundal fibroid.
[2017-08-24] MEDS ORDERED: Potassium Chloride 20 mEq ER Tab PO ONE (13:00)
[2017-08-24 16:38] VITALS: O2SAT 100
[2017-08-24] MEDS: Folic Acid 1 MG, Thiamine 100 MG, Multivitamin (MVI) 10 ML in Dextrose 5% In Water 1,00... IV SCH (19:04)
--- NOTE | 2017-08-24 19:28 | CP.PCM.PN ---
<Linda Monique - Last Filed: 08/24/17 19:36> Subjective - Date & Time of Evaluation Date of Evaluation: 08/24/17 Time of Evaluation: 19:25 - Subjective Subjective: OB Progress Note: Patient seen and examined at bedside. Per nursing no acute events overnight. Patient states that she is feeling better. Still nauseous but no episodes of vomiting today. Tolerating clear liquid diet. Patient admits to having a 13lb weight loss between 08/13/17 and now. Denies headache, dizziness, cp, palpitations, sob, urinary symptoms. Objective - Vital Signs/Intake and Output Vital Signs (last 24 hours): Temp Pulse Resp BP Pulse Ox 99 F 69 20 100/63 100 08/24/17 15:25 08/24/17 15:25 08/24/17 15:25 08/24/17 15:25 08/24/17 15:25 Intake and Output: 08/24/17 08/25/17 18:59 06:59 Intake Total 350 Balance 350 - Medications Medications: Current Medications Famotidine (Pepcid) 20 mg IVP DAILY [facility] Last Admin: 08/24/17 10:10 Dose: 20 mg Folic Acid 1 mg/ Thiamine HCl 100 mg/ Multivitamins/Vitamin C 10 ml/ Dextrose 1 ,011.2 mls @ 125 mls/hr IV Q24H [facility] Last Admin: 08/24/17 19:04 Dose: 125 mls/hr Ondansetron HCl (Zofran Inj) 8 mg IVP Q8H PRN PRN Reason: Nausea/Vomiting Last Admin: 08/24/17 19:01 Dose: 8 mg Pneumococcal Polyvalent Vaccine (Pneumovax 23 Vaccine) 0.5 ml IM .ONCE ONE Stop: 08/26/17 10:01 - Labs Labs: 08/24/17 06:52 08/24/17 06:52 - Constitutional Appears: Well, No Acute Distress - Head Exam Head Exam: ATRAUMATIC, NORMAL INSPECTION - Eye Exam Eye Exam: EOMI, Normal appearance - ENT Exam ENT Exam: Mucous Membranes Moist - Respiratory Exam Respiratory Exam: NORMAL BREATHING PATTERN - Cardiovascular Exam Cardiovascular Exam: REGULAR RHYTHM, +S1, +S2 - GI/Abdominal Exam GI & Abdominal Exam: Soft. absent: Tenderness - Extremities Exam Extremities Exam: Normal Inspection - Neurological Exam Neurological Exam: Alert, Awake, Normal Gait, Oriented x3 - Psychiatric Exam Psychiatric exam: Normal Affect, Normal Mood - Skin Skin Exam: Normal Color, Warm Assessment and Plan (1) Nausea and vomiting during prior to 22 weeks gestation Assessment & Plan: -Stable, afebrile -OB US confirmed 7 week 0 day IUP -Will advance diet as tolerated -Continue IV fluid hydration with multivitamins, folic acid, thiamine, vitamin c -Continue Zofran 8mg IVP Q8H prn nausea -Hypokalemia: Potassium 3.0 today, repleted -Hypomagnesemia: Mag 1.5, repleted -F/U am CMP -Continue Pepcid 20mg IVP daily -Patient currently on [facility] waitlist for care -Will anticipate D/C home tomorrow -Plan discussed with attending Linda Monique DO PGY-1 Status: Acute <Boni,Antonieta A - Last Filed: 08/26/17 21:48> Objective - Vital Signs/Intake and Output Vital Signs (last 24 hours): Temp Pulse Resp BP Pulse Ox 98.6 F 65 20 94/57 L 100 08/25/17 07:42 08/25/17 07:42 08/25/17 07:42 08/25/17 07:42 08/25/17 07:42 - Labs Labs: 08/24/17 06:52 08/25/17 07:10 Attending/Attestation - Attestation I have personally seen and examined this patient.: Yes I have fully participated in the care of the patient.: Yes I have reviewed all pertinent clinical information, including history, physical exam and plan: Yes
[2017-08-25 07:46] VITALS: BP 94/57; PULSE 65; TEMP 98.6
[2017-08-25 07:48] LABS: ALB/GLOB RATIO 1.5 (1.0-2.1); ALKALINE PHOSPHATASE 44 U/L (38-126); ALT/SGPT 18 U/L (9-52); AST/SGOT 14 U/L (14-36); BILIRUBIN,TOTAL 1.2 mg/dL (0.2-1.3); BLOOD UREA NITROGEN 3 mg/dL (7-17); CARBON DIOXIDE 20 mmol/L (22-30); CHLORIDE 102 mmol/L (98-107); GFR AFRICAN-AMERICAN > 60; GLUCOSE,RANDOM 78 mg/dL (65-105); MAGNESIUM 1.6 mg/dL (1.6-2.3); POTASSIUM 3.2 mmol/L (3.6-5.2); SODIUM 129 mmol/L (132-148)
--- NOTE | 2017-08-25 09:19 | CP.PCM.DIS ---
Provider - Provider Date of Admission: 08/23/17 18:46 Attending physician: Faiza Dasilva MD Time Spent in preparation of Discharge (in minutes): 45 Hospital Course - Lab Results Lab Results: Most Recent Lab Values WBC 5.9 K/uL (4.8-10.8) 08/24/17 06:52 RBC 4.29 Mil/uL (3.80-5.20) 08/24/17 06:52 Hgb 11.0 g/dL (11.0-16.0) D 08/24/17 06:52 Hct 33.6 % (34.0-47.0) L 08/24/17 06:52 MCV 78.3 fL (81.0-99.0) L 08/24/17 06:52 MCH 25.6 pg (27.0-31.0) L 08/24/17 06:52 MCHC 32.7 g/dL (33.0-37.0) L 08/24/17 06:52 RDW 14.5 % (11.5-14.5) 08/24/17 06:52 Plt Count 132 K/uL (130-400) 08/24/17 06:52 MPV 11.1 fL (7.2-11.7) 08/24/17 06:52 Neut % (Auto) 68.3 % (50.0-75.0) 08/24/17 06:52 Lymph % (Auto) 18.1 % (20.0-40.0) L 08/24/17 06:52 [place] % (Auto) 12.1 % (0.0-10.0) H 08/24/17 06:52 Eos % (Auto) 1.1 % (0.0-4.0) 08/24/17 06:52 Baso % (Auto) 0.4 % (0.0-2.0) 08/24/17 06:52 Neut # 4.0 K/uL (1.8-7.0) 08/24/17 06:52 Lymph # 1.1 K/uL (1.0-4.3) 08/24/17 06:52 [place] # 0.7 K/uL (0.0-0.8) 08/24/17 06:52 Eos # 0.1 K/uL (0.0-0.7) 08/24/17 06:52 Baso # 0.0 K/uL (0.0-0.2) 08/24/17 06:52 Sodium 129 mmol/L (132-148) L 08/25/17 07:10 Potassium 3.2 mmol/L (3.6-5.2) L 08/25/17 07:10 Chloride 102 mmol/L (98-107) 08/25/17 07:10 Carbon Dioxide 20 mmol/L (22-30) L 08/25/17 07:10 Anion Gap 11 (10-20) 08/25/17 07:10 BUN 3 mg/dL (7-17) L 08/25/17 07:10 Creatinine 0.5 mg/dL (0.7-1.2) L 08/25/17 07:10 Est GFR ( Amer) > 60 08/25/17 07:10 Est GFR (Non-Af Amer) > 60 08/25/17 07:10 Random Glucose 78 mg/dL (65-105) 08/25/17 07:10 Calcium 8.0 mg/dl (8.6-10.4) L 08/25/17 07:10 Magnesium 1.6 mg/dL (1.6-2.3) 08/25/17 07:10 Total Bilirubin 1.2 mg/dL (0.2-1.3) 08/25/17 07:10 AST 14 U/L (14-36) 08/25/17 07:10 ALT 18 U/L (9-52) 08/25/17 07:10 Alkaline Phosphatase 44 U/L (38-126) 08/25/17 07:10 Total Protein 6.0 g/dL (6.3-8.3) L 08/25/17 07:10 Albumin 3.6 g/dL (3.5-5.0) 08/25/17 07:10 Globulin 2.4 gm/dL (2.2-3.9) 08/25/17 07:10 Albumin/Globulin Ratio 1.5 (1.0-2.1) 08/25/17 07:10 Amylase 76 U/L (30-110) 08/24/17 06:52 Lipase 115 U/L (23-300) 08/24/17 06:52 Free T4 1.38 ng/dL (0.78-2.19) 08/24/17 06:52 TSH 3rd Generation 0.60 mIU/L (0.46-4.68) 08/24/17 06:52 Beta HCG, Quant 939087.00 mIU/ML 08/23/17 16:20 Urine Color Yellow (YELLOW) 08/24/17 06:54 Urine Clarity Clear (Clear) 08/24/17 06:54 Urine pH 6.0 (5.0-8.0) 08/24/17 06:54 Ur Specific [place] 1.004 (1.003-1.030) 08/24/17 06:54 Urine Protein Negative mg/dL (NEGATIVE) 08/24/17 06:54 Urine Glucose (UA) Normal mg/dL (Normal) 08/24/17 06:54 Urine Ketones 1+ mg/dL (NEGATIVE) H 08/24/17 06:54 Urine Blood Negative (NEGATIVE) 08/24/17 06:54 Urine Nitrate Negative (NEGATIVE) 08/24/17 06:54 Urine Bilirubin Negative (NEGATIVE) 08/24/17 06:54 Urine Urobilinogen Normal mg/dL (0.2-1.0) 08/24/17 06:54 Ur Leukocyte Esterase Neg Marilyn/uL (Negative) 08/24/17 06:54 Urine WBC (Auto) 2 /hpf (0-5) 08/24/17 06:54 Urine RBC (Auto) 1 /hpf (0-3) 08/24/17 06:54 Ur Squamous Epith Cells 1 /hpf (0-5) 08/24/17 06:54 Urine Bacteria Many (<OCC) H 08/24/17 06:54 Urine HCG, Qual Positive (NEGATIVE) 08/23/17 18:04 - Hospital Course Hospital Course: 37 y/o @ 7 wks 0 days confirmed by ultrasound here [place] [facility] [place] presented [place] [facility] with a 10 day (since last ) hx nbnb n/v, which was unrelenting even with Reglan at home. Zofran and Reglan were given while she was in the ER to no avail. Pt also complained of a 15 pound weight loss over the past 10 days. Of note, patient's previous single resulted in a ruptured ectopic s/p laparosopy. Patient denied further complaints, including recent illness, barron/dizziness/f/ch/cp/sob/diarrhea. While at [facility], pt was advanced to FLD, which she tolerated though she did not have a strong appetite. Her Zofran dose was increased to 8q8, which finally alleviated her n/v. On admission day 2, Patient still did not feel comfortable leaving, thus she was kept overnight to observe and advance her diet to regular. She had one more bout of emesis that day. On day of discharge, patient was feeling much better, though she still had some residual nausea. No further bouts of emesis were reported and patient was deemed stable for d/c on Reglan and Pepcid. Discharge Exam - Head Exam Head Exam: ATRAUMATIC, NORMAL INSPECTION - Eye Exam Eye Exam: EOMI, Normal appearance, PERRL Pupil Exam: NORMAL ACCOMODATION, PERRL - ENT Exam ENT Exam: Mucous Membranes Moist, Normal Exam. absent: Mucous Membranes Dry - Neck Exam Neck exam: Full Rom, Normal Inspection - Respiratory Exam Respiratory Exam: Clear to PA & Lateral, NORMAL BREATHING PATTERN, UNREMARKABLE - Cardiovascular Exam Cardiovascular Exam: REGULAR RHYTHM, +S1, +S2 - GI/Abdominal Exam GI & Abdominal Exam: Normal Bowel Sounds. absent: Distended, Guarding, Rebound , Rigid - Extremities Exam Extremities exam: full ROM, normal inspection - Back Exam Back exam: FULL ROM, NORMAL INSPECTION. absent: CVA tenderness (L), CVA tenderness (R) - Neurological Exam Neurological exam: Alert, CN II-XII Intact, Normal Gait, Oriented x3, Reflexes Normal - Psychiatric Exam Psychiatric exam: Normal Affect, Normal Mood - Skin Skin Exam: Dry, Intact, Normal Color, Warm Discharge Plan - Discharge Medications Prescriptions: Famotidine [Pepcid] 20 mg IVP DAILY #60 vial Ondansetron [Zofran Inj] 8 mg IVP Q8H PRN #45 vial PRN Reason: Nausea/Vomiting - Follow Up Plan Condition: STABLE Disposition: HOME/ ROUTINE Patient education suggested?: Yes Instructions: Hyperemesis Gravidarum (DC) Additional Instructions: Please keep your appointment for tomorrow here at [facility] Please make sure to keep hydrated. You should be drinking plenty of water ( half of your weight in ounces) Your Potassium was low. Try to supplement your potassium on a weekly basis, or eating foods with potassium content on a daily basis (such as bananas). Consider seeing a casino floor person Should your symptoms persist or worsen please report back to the emergency room immediately
[2017-08-25] MEDS ORDERED: Potassium Chloride 20 mEq ER Tab PO SCH (10:00)
[2017-08-26] MEDS ORDERED: Influenza Vaccine 60 mcg/0.5 mL SYR (4YR UP) IM ONE (10:00)
[2017-08-26] MEDS ORDERED: Pneumococcal 23-Valent Vaccine IM ONE (10:00)
== END 2017-08-25 15:48 | disposition home or self-care (01) ==
LOC: C.ER 15:47 → C.9E 18:46 → C.3T 19:08
PROVIDERS: ADMIT Obstetrics & Gynecology; ATTEND Obstetrics & Gynecology
DX: O21.1 Hyperemesis gravidarum with metabolic disturbance (principal); Z3A.22 22 weeks gestation of pregnancy; E86.0 Dehydration
CPT/HCPCS: 36415; 76801; 80048; 80053; 81001; 82150; 83690; 83735; 84439; 84443; 84702; 84703; 85025; 85027; 96361; 96374; 96375; 99285; G0378; J2405; J2765; J3411; J3475; J3480; J7040; J7070

== ENCOUNTER 2017-10-16 05:48 | Day surgery (SDC) | payer OTHER ==
[2017-10-15 12:42] VITALS: BMI 19.7
[2017-10-16] MEDS ORDERED: cefOXitin IV 1 gm in Dextrose 0 GM/0 ML BAG IVPB ONE (07:33)
[2017-10-16 07:34] LABS: BLOOD UREA NITROGEN 8 mg/dL (7-17); CALCIUM 9.3 mg/dl (8.6-10.4); GFR AFRICAN-AMERICAN > 60; GFR NON-AFRICAN AMERICAN > 60
[2017-10-16] MEDS ORDERED: Propofol 10 mg/ml Inj (20 ML) ONE (07:45)
[2017-10-16] MEDS ORDERED: Midazolam 2 MG/2 ML VIAL ONE (07:45)
[2017-10-16] MEDS ORDERED: Succinylcholine Chloride 20 mg/ml Syr (5 ml) IV ONE (07:46)
[2017-10-16] MEDS ORDERED: Silver Nitrate Topical - Stick ONE (08:37)
--- NOTE | 2017-10-16 08:49 | PCM.SURG1 ---
Surgeon's Initial Post Op Note - Surgeon's Notes Surgeon: Antonieta Plata MD Inspector Subassemblies: Not applicable Type of Anesthesia: General Endo Anesthesia Administered By: Brittany Hallman MD Pre-Operative Diagnosis: Missed at 16 week, hyperemesis gravidarum, fibroid uterus Operative Findings: AV uterus 14 weeks, Uterus sounded to 14 cm. Moderate amount of products of conception. No adnexal masses appreciated Post-Operative Diagnosis: Same Operation Performed: Dilatation and curettage Specimen/Specimens Removed: Products of conception Estimated Blood Loss: EBL {In ML}: 100 (IVFs 900 mL LR) Blood Products Given: N/A Drains Used: No Drains Post-Op Condition: Good Date of Surgery/Procedure: 10/16/17 Time of Surgery/Procedure: 08:50
[2017-10-16] MEDS ORDERED: HYDROmorphone 0.5 mg/0.5 ml ISec IVP PRN (08:59)
[2017-10-16] MEDS ORDERED: HYDROmorphone 0.5 mg/0.5 ml ISec ONE (09:02)
[2017-10-16 09:29] VITALS: O2SAT 100
[2017-10-16] MEDS ORDERED: Lactated Ringer's 1,000 ML IV ONE (11:42)
[2017-10-16 13:31] VITALS: BP 96/53; PULSE 80; RESP 15; TEMP 97.4
--- NOTE | 2017-10-16 19:52 | OP ---
PROCEDURE DATE: 10/16/2017 SURGEON: Antonieta Plata MD HIP HOP DANCER: Not applicable. ANESTHESIA TYPE: General with endotracheal intubation. ANESTHESIOLOGIST: Ariana Martinez MD PREOPERATIVE DIAGNOSES: Missed at 16 weeks, hyperemesis gravidarum, and leiomyomatous uteri. POSTOPERATIVE DIAGNOSES: Missed at 16 weeks, hyperemesis gravidarum, and leiomyomatous uteri. OPERATIVE FINDINGS: Anteverted uterus 14 weeks, soft and mobile. Uterus eventually sounded to 14 cm. Normal adnexa with no adnexal masses appreciated. Moderate amount of products of conception. OPERATION PERFORMED: Cervical dilatation and sharp/suction curettage. SPECIMEN: Products of conception. ESTIMATED BLOOD LOSS: 100 mL. INTRAVENOUS FLUIDS: 900 mL total of lactated Ringer's with 30 units of Pitocin. BLOOD PRODUCTS RECEIVED: None. DRAINS: None. COMPLICATIONS: None. DESCRIPTION OF PROCEDURE: The patient was taken to the operating room after having obtained informed consent for the anticipated procedure. This included a discussion of possible risks and complications including, but not limited to uterine perforation, requiring laparoscopy and possible laparotomy with repair of any damage to internal organs, infection, and hemorrhage. The patient expressed an understanding, no questions were offered. Consent was signed, dated, witnessed and placed in the chart. The patient was then escorted to the operating room. In the operating room and on the table, she was placed in a supine position. General anesthesia was administered without incident. She was then repositioned in a candy-cane stirrups in a dorsal lithotomy position. The perineum was prepped and she was draped in the usual sterile fashion. Examination under anesthesia was performed. Findings as above. The patient was then placed in Trendelenburg position. A weighted speculum was placed in the posterior vaginal vault. A Mistry retractor was placed anteriorly and the cervix was visualized. The anterior lip of the cervix was grasped with a single tooth tenaculum. The cervix was then dilated mechanically using the Hanks and Hegar mechanical dilators. This allowed introduction of an 11 mm suction curette. Once placed in the uterine cavity, the suction device was activated and the endometrial contents were evacuated. Sharp curettage was then performed until a gritty texture was obtained. All instruments were removed. Hemostasis was assured on the anterior lip of the cervix using silver nitrate sticks. Bimanual message was performed and the uterus was noted to be contracted about 10 to 12 weeks' in size. All instruments were removed. The patient was replaced in the supine position. She was extubated and allowed to arise from anesthesia. She was transferred to the postanesthesia care unit in stable condition. Antonieta Plata MD MTDD
== END 2017-10-16 13:23 | disposition home or self-care (01) ==
LOC: C.SDS 05:48
PROVIDERS: ATTEND Obstetrics & Gynecology
DX: O02.1 Missed abortion (principal); O34.12 Maternal care for benign tumor of corpus uteri, second trimester; D25.9 Leiomyoma of uterus, unspecified; O21.0 Mild hyperemesis gravidarum; Z3A.16 16 weeks gestation of pregnancy
CPT/HCPCS: 36415; 59821; 80048; 86850; 86900; 88305; J1170; J2001; J2250; J2704; J2765; J3010; J7120

== ENCOUNTER 2017-11-23 14:56 | Emergency (ER) | payer OTHER ==
[2017-11-23 14:57] VITALS: BMI 21.4
[2017-11-23 15:04] VITALS: RESP 18; O2SAT 100
[2017-11-23] MEDS ORDERED: Sodium Chloride 0.9% 1,000 ML IV ONE (15:27)
[2017-11-23 15:36] LABS: BASO % 0.7 % (0.0-2.0); EOS # 0.1 K/uL (0.0-0.7); EOS % 1.2 % (0.0-4.0); HEMOGLOBIN 9.4 g/dL (11.0-16.0); LYMPH # 1.4 K/uL (1.0-4.3); LYMPH % 26.2 % (20.0-40.0); MEAN CELL VOLUME 75.4 fL (81.0-99.0); MEAN CORPUSCULAR HEMOGLOBIN 24.1 pg (27.0-31.0); MEAN PLATELET VOLUME 10.7 fL (7.2-11.7); MONO # 0.7 K/uL (0.0-0.8); MONO % 12.8 % (0.0-10.0); NEUT # 3.1 K/uL (1.8-7.0); NEUT % 59.1 % (50.0-75.0); RBC 3.88 Mil/uL (3.80-5.20); RED CELL DISTRIBUTION WIDTH 14.9 % (11.5-14.5); WHITE BLOOD COUNT 5.3 K/uL (4.8-10.8)
--- NOTE | 2017-11-23 15:36 | C.PDOC ---
History Of Present Illness 37 y/o female with history of Anemia presents to ED with complaints of persistent vaginal spotting associated with pelvic pain since 10/16 when she had a D&C for molar . Patient describes pain as sharp, worse on the left side and states spotting has worsened for 2 days with blood clots. She also reports feeling weak and shortness of breath on exertion for one week. Last night she felt lightheaded. She took Tylenol with minimal relief. Patient saw OBGYN 10/29 and was put on Vienva. Denies dysuria, vaginal discharge or fever. Time Seen by Provider: 11/23/17 15:13 Chief Complaint (Nursing): Abdominal Pain History Per: Patient History/Exam Limitations: no limitations Onset/Duration Of Symptoms: Days Location Of Pain/Discomfort: Suprapubic Radiation Of Pain To:: None Quality Of Discomfort: Sharp Associated Symptoms: Nausea Past Medical History Reviewed: Historical Data, Nursing Documentation, Vital Signs Vital Signs: Last Vital Signs Temp 98.7 F 11/23/17 18:43 Pulse 78 11/23/17 18:43 Resp 18 11/23/17 18:43 BP 121/72 11/23/17 18:43 Pulse Ox 100 11/23/17 18:43 - Medical History PMH: Anemia Surgical History: No Surg Hx - [facility] Procedures EXCISION OF RIGHT FALLOPIAN TUBE, PERC ENDO APPROACH (11/15/16) RESECTION OF ECTOPIC POC, PERC ENDO APPROACH (11/15/16) Family History: States: No Known Family Hx - Social History Hx Tobacco Use: No Hx Alcohol Use: No Hx Substance Use: No - Immunization History Hx Tetanus Toxoid Vaccination: No Hx Influenza Vaccination: No Hx Pneumococcal Vaccination: No Review Of Systems Constitutional: Positive for: Weakness. Negative for: Fever, Chills Respiratory: Positive for: SOB with Excertion Gastrointestinal: Positive for: Nausea, Abdominal Pain Genitourinary: Positive for: Vaginal Bleeding. Negative for: Dysuria, Vaginal Discharge Skin: Negative for: Rash Neurological: Positive for: Dizziness Physical Exam - Physical Exam Appears: Non-toxic, No Acute Distress Skin: Warm, Dry, No Rash Head: Atraumatic, Normacephalic Eye(s): bilateral: Normal Inspection, PERRL, EOMI, Conjunctiva Pale Oral Mucosa: Moist Neck: Normal ROM, Supple Chest: Symmetrical, No Tenderness Cardiovascular: Rhythm Regular Respiratory: Normal Breath Sounds, No Rales, No Rhonchi, No Wheezing Gastrointestinal/Abdominal: Soft, Tenderness (Suprapubic L>R), No Mass, No Distention, No Guarding, No Rebound, No Ascites Back: Normal Inspection, No CVA Tenderness Extremity: Bilateral: Atraumatic, Normal Color And Temperature, Normal ROM Neurological/Psych: Oriented x3, Normal Speech Gait: Steady ED Course And Treatment - Laboratory Results Result Diagrams: 11/23/17 15:32 11/23/17 15:32 O2 Sat by Pulse Oximetry: 100 (RA) Pulse Ox Interpretation: Normal - CT Scan/US Transvaginal US Other Rad Studies (CT/US): Read By Radiologist, Radiology Report Reviewed CT/US Interpretation: HISTORY: left sided pelvic pain. Menstrual status: LMP . COMPARISON: 11/10/2017. TECHNIQUE: Transabdominal, transvaginal. Real -time technique with 2D, duplex and color Doppler. FINDINGS: UTERUS: Measures 5.1 x 9.5 cm. Normal in size and appearance. Location of fibroid and size: Anterior fundal intramural fibroid 2.7 x 2.3 x 2.7 cm. ENDOMETRIUM: Measures 6.2 mm in diameter. Mildly heterogeneous endometrium. Otherwise unremarkable. CERVIX: No cervical abnormality identified. Closed cervix 2.4 cm. RIGHT OVARY: Measures 2.1 x 3.8 x 3.3 cm. No solid mass. Normal flow. Simple cysts 1.5 x 2.2 cm. LEFT OVARY: Measures 1.2 x 2.4 x 2.4 cm. No solid mass. Normal flow. FREE FLUID: No significant free fluid noted. OTHER FINDINGS: None. IMPRESSION: No acute findings related to/accounting for the clinical presentation. No significant interval change compared to the prior examination(s). Medical Decision Making Medical Decision Making: Impression: Vaginal bleeding for weeks Plan: * Blood work * UA * Trans vaginal Ultrasound * IV fluids Prior records reviewed: Labs from 11/06 show H/H 9.7/29 and BHCG 5.04. Patient seen in clinic 11/10 had CXR and US. US showed 2.8 cm intramural anterior fundal calcified fibroid. 2.0 cm simple cyst in the right ovary. CXR showed no active disease Progress: Labs reviewed, Hgb is >9 no acute change from last visit. US viewed by me showing right ovarian cyst and fibroid uterus. [address] Enriquez paged [phone] Enriquez [phone] 3rd attempt to contact Dr Enriquez Unable to reach her business unit manager. Will treat with Provera for bleeding. Patient remained afebrile alert and oriented in no acute distress. Her vital signs are stable. Discussed results of lab and US with patient. Patient expresses understanding. All questions answered and patient instructed to follow up with business unit manager next week. Patient is stable for discharge. Advised to return if symptoms persist or worsen. Disposition Counseled Patient/Family Regarding: Diagnosis, Need For Followup, Rx Given - Disposition Referrals: Fede Lynn MD [Medical Doctor] - Disposition: HOME/ ROUTINE Disposition Time: 18:50 Condition: STABLE Additional Instructions: Take Provera daily as indicated to stop vaginal bleeding. It is important that your follow up with your business unit manager in timely manner within a week. After stopping medication, bleeding may resume. Take Tylenol or Ibuprofen for any pain you may have. Return to the ER for any worsening symptoms Prescriptions: MedroxyPROGESTERone [Provera] 1 tab PO DAILY #10 tab Instructions: Dysfunctional Uterine Bleeding (ED) Forms: [employer] (Niuean) - POA Present On Arrival: None - Clinical Impression Clinical Impression: Vaginal bleeding, abnormal - PA / CORRESPONDENCE SECTION SUPERVISOR / Resident Statement MD/DO has reviewed & agrees with the documentation as recorded. - Scribe Statement The provider has reviewed the documentation as recorded by the Nesha Whaley All medical record entries made by the Nesha were at my direction and personally dictated by me. I have reviewed the chart and agree that the record accurately reflects my personal performance of the history, physical exam, medical decision making, and the department course for this patient. I have also personally directed, reviewed, and agree with the discharge instructions and disposition.
[2017-11-23 15:50] LABS: PROTHROMBIN TIME 11.1 SECONDS (9.7-12.2)
[2017-11-23 15:54] LABS: BLOOD UREA NITROGEN 8 mg/dL (7-17); CALCIUM 8.7 mg/dl (8.6-10.4); GFR AFRICAN-AMERICAN > 60; GFR NON-AFRICAN AMERICAN > 60
[2017-11-23 16:11] LABS: HCG,QUALITATIVE URINE NEGATIVE (NEGATIVE)
[2017-11-23 16:12] LABS: SQUAMOUS EPITHIAL 1 /hpf (0-5); URINE BILIRUBIN NEGATIVE (NEGATIVE); URINE BLOOD NEGATIVE (NEGATIVE); URINE CLARITY Clear (Clear); URINE COLOR Yellow (YELLOW); URINE GLUCOSE (UA) NORMAL (Normal); URINE LEUKOCYTE ESTERASE NEG Leu/uL (Negative); URINE PROTEIN NEGATIVE (NEGATIVE); URINE UROBILINOGEN NORMAL mg/dL (0.2-1.0)
--- NOTE | 2017-11-23 18:32 | US ---
HISTORY: left sided pelvic pain. Menstrual status: LMP 07/04/2017 COMPARISON: 11/10/2017 TECHNIQUE: Transabdominal, transvaginal. Real -time technique with 2D, duplex and color Doppler. FINDINGS: UTERUS: Measures 5.1 x 9.5 cm. Normal in size and appearance. Location of fibroid and size: Anterior fundal intramural fibroid 2.7 x 2.3 x 2.7 cm ENDOMETRIUM: Measures 6.2 mm in diameter. Mildly heterogeneous endometrium. Otherwise unremarkable CERVIX: No cervical abnormality identified. Closed cervix 2.4 cm. RIGHT OVARY: Measures 2.1 x 3.8 x 3.3 cm. No solid mass. Normal flow. Simple cysts 1.5 x 2.2 cm. LEFT OVARY: Measures 1.2 x 2.4 x 2.4 cm. No solid mass. Normal flow. FREE FLUID: No significant free fluid noted. OTHER FINDINGS: None. IMPRESSION: No acute findings related to/accounting for the clinical presentation. No significant interval change compared to the prior examination(s).
[2017-11-23 18:43] VITALS: BP 121/72; PULSE 78; TEMP 98.7
== END 2017-11-23 19:04 | disposition home or self-care (01) ==
LOC: C.ER 14:56
DX: N93.9 Abnormal uterine and vaginal bleeding, unspecified (principal)
CPT/HCPCS: 76830; 76856; 80048; 81001; 84702; 84703; 85025; 85027; 85610; 85730; 96360; 99285; J7040